=== PATIENT | male | born 1955 | race Two or more races ===

== ENCOUNTER 2022-03-20 04:08 | Day surgery (SDC) | payer MEDICARE ==
[2022-03-13 13:05] VITALS: BMI 24.1
[2022-03-20] MEDS ORDERED: FENTANYL CITRATE/PF 50 MCG/ML VIAL ONE ×2 (10:22→10:35)
[2022-03-20] MEDS ORDERED: MIDAZOLAM HCL 2 MG/2 ML SINGLE DOSE VIAL ONE (10:22)
[2022-03-20 13:22] VITALS: TEMP 97.8
[2022-03-20 13:24] VITALS: BP 110/72; PULSE 68
== END 2022-03-20 11:38 | disposition home or self-care (01) ==
LOC: JASU-SURG 04:08
PROVIDERS: ATTEND Urology
PROC: 0TF4XZZ Fragmentation in Left Kidney Pelvis, External Approach (ICD-10-PCS; principal; 2022-03-20 10:00)
DX: N20.0 Calculus of kidney (principal)